=== PATIENT | female | born 1980 | race Caucasian/White ===

== ENCOUNTER 2017-12-01 12:21 | Observation (INO) | payer OTHER ==
[2017-12-01 13:13] VITALS: BMI 31.6
[2017-12-01] MEDS ORDERED: cefTRIAXone\\ROCEPHIN 2 GM VIAL IM SCH (14:00)
[2017-12-01] MEDS ORDERED: Lidocaine 1% PF 5 ML VIAL FS SCH (14:00)
[2017-12-01 14:07] LABS: Bilirubin Negative (Negative); Blood, Urine Negative (Negative); Clarity CLOUDY (Clear); Glucose, Urine (Dipstick) Negative (Negative); Leukocyte Small (Negative); Nitrite Positive (Negative); Protein, Urine (Dipstick) Trace mg/dL (Neg-Trace); Specific Gravity, Urine 1.023 (1.002-1.036); Urobilinogen 0.2 mg/dL (0.2-1.0)
[2017-12-01] MEDS ORDERED: Zolpidem Tartrate 5 MG TAB PO PRN (14:07)
[2017-12-01] MEDS ORDERED: Ondansetron HCl/PF 4 MG/2 ML Vial IVP PRN (14:07)
[2017-12-01 14:12] LABS: Bacteria/HPF 4+ HPF (None Seen); Pathc Cast-AUWi Flag 1.01 (0-2.49); RBC/HPF 0-3 HPF (0-3); Squamous Epithelial 0-3 HPF (0-3)
[2017-12-01 14:21] LABS: Hyaline Casts/LPF 0-3 HYALINE CAST LPF (0-3 Hyaline)
--- NOTE | 2017-12-01 14:50 | ULT ---
RENAL ULTRASOUND: DATE: 12/01/17. COMPARISON: None. HISTORY: Right-sided back pain. Urinary tract infection. TECHNIQUE: Multiplanar, rodriguez scale, sonographic imaging of the kidneys and urinary bladder obtained. FINDINGS: Mild prominence of the right ureter is seen proximally. No right-sided hydronephrosis, stone, or mas s lesion. The right kidney measures 10.2 x 4.2 x 5.2 cm. The left kidney measures 12.0 x 5.0 x 5.6 cm. No left renal mass, hydronephrosis, or stone. Urinary bladder is nearly fully decompressed. IMPRESSION: Mild prominence of the proximal right ureter. The study appears otherwise unremarkable. POS: SIRENA
--- NOTE | 2017-12-01 23:53 | HP ---
DATE OF ENCOUNTER: 12/01/2017 PRIMARY FLUME MAKER: Dr. Yogesh Brand. CHIEF COMPLAINT: Back pain and dysuria and fever. HISTORY OF PRESENT ILLNESS: The patient is a 37-year-old female, who was seen by Dr. Brand today in clinic and was sent to Labor and Delivery for evaluation for pyelonephritis. The patient reports th at she has been having fever for the last several nights up to 101.7. She also reports that she had a diagnosed urinary tract infection earlier in this and was treated with Bactrim, which on review was noted to have resistance. Her culture was noted to be resistant to Bactrim. She has dysu elvira and urgency. She feels like she has incomplete emptying and has had right flank pain off and on for the last several days. She reports with her fevers that she has the shakes. The patient, otherw ise, denies any other problems. She denies headache or chest pain. She denies shortness of breath o r any chest pain currently. She did report some chest pain a week ago or so that was severe, but has since dissipated and is now present. Denies nausea or vomiting. Denies diarrhea or constipation. Denies any new rashes. Denies hip problems or knee problems or muscle weakness. Denies vaginal blee ding or leakage of fluid and then reports urgency and incomplete emptying as per beginning of HPI. PAST MEDICAL HISTORY: Negative. PAST SURGICAL HISTORY: She has had a prior x1. ALLERGIES: She is allergic to PENICILLIN and to Macrobid. She has taken cephalosporins before witho ut any problems. SOCIAL HISTORY: Reports about a half pack per day of smoking. MEDICATIONS: She is on vitamins. OBSTETRICAL LABORATORY DATA: Blood type is A positive, antibody screen is negative, HIV is nonreacti ve in the first trimester. Hepatitis B surface antigen is nonreactive in the first trimester. GC an d chlamydia are negative. She is rubella immune. REVIEW OF SYSTEMS: Per HPI. PHYSICAL EXAMINATION: VITAL SIGNS: Blood pressure is 123/77, heart rate of 93, respiratory rate 18, satting 96% on room ai r, temperature 98.7. GENERAL: She appears to be in no acute distress. She is alert and oriented, cooperative, and pleasa nt to interact with. HEAD: Normocephalic, atraumatic. LUNGS: Clear to auscultation bilaterally. HEART: Regular rate and rhythm. CHEST: She has no chest wall tenderness to palpation. She has plus or minus CVA tenderness on the r ight side and she has a right-sided SI joint tenderness to palpation. ABDOMEN: Soft and nontender. EXTREMITIES: Nontender and nonedematous. GENITOURINARY EXAM: Has been deferred. heart tracing shows a fetus in the 140s with moderate long-term variability appropriate for a 2 4-week . She does have some irritability visible on the monitor, but not felt by the patien t. LABORATORY DATA: Urine cath UA was collected, noted to have trace protein, positive nitrite, small l eukocyte esterase, 7-10 white blood cells, 4+ bacteria. A culture has been ordered and is pending. Renal ultrasound was also ordered, just noting a prominence of the right ureter, otherwise within nor mal limits. ASSESSMENT AND PLAN: The patient is a 37-year-old female, , with an intrauterine at 2 4 weeks and 2 days, who will be placed in observation here in the hospital. Given her history, likel y has pyelonephritis. I have given her 2 grams of Rocephin IM. If she remains afebrile during the n ext 24 hours, the patient can be discharged to home and can be treated as an outpatient. Patient tayler es about an hour and a half from the hospital.
[2017-12-02] MEDS ORDERED: cefTRIAXone\\ROCEPHIN 1 GM VIAL IM SCH (06:45)
--- NOTE | 2017-12-02 07:09 | DIS ---
DATE OF ADMISSION: 12/01/2017 DATE OF DISCHARGE 12/02/2017 ADMITTING DIAGNOSES: 1. Complicated urinary tract infection, suspect for pyelonephritis. 2. Intrauterine at 24 weeks. DISCHARGE DIAGNOSES: 1. Complicated urinary tract infection, suspect for pyelonephritis. 2. Intrauterine at 24 weeks. PROCEDURE: None. CONSULTATIONS: None. HOSPITAL COURSE: The patient is a 37-year-old female with an intrauterine at 24 weeks who had a history of known urinary tract infection resistant to treatment, presenting with recorded fever s at home at nights, last previous 3 nights, and rigors and intermittent flank pain. After evaluatio n here at the hospital the patient was noted to have pyuria and with her living more than an hour and a half away and her history, decision was made to treat with Rocephin and keep her here overnight fo r observation with the intent that if the patient remained afebrile the patient could go home with or al treatment. Overnight, the patient has remained afebrile with normal vital signs: VITAL SIGNS: This morning blood pressure is 106/60, temperature 98.2, pulse is 78, respiratory rate of 18. GENERAL: The patient appears to be in no acute distress. She is alert and oriented, cooperative, pl easant to interact with. ABDOMEN: Soft. There is no CVA tenderness. EXTREMITIES: Nontender, nonedematous. The patient is being discharged to home on Keflex 500 mg to be taken 3 times a day for the next week. She will also be going sent home with 1 more dose of IM Rocephin 1 gram before discharge. She has instructions to follow up with her primary OB as scheduled and has been given labor precautio ns and instructions to return should the fevers return. There is a urine culture pending that her primary OB can follow up on.
[2017-12-02] MEDS ORDERED: Lidocaine 1% PF 5 ML VIAL FS SCH (08:00)
[2017-12-02 08:03] VITALS: BP 118/71; TEMP 97.6
== END 2017-12-02 09:30 | disposition home or self-care (01) ==
LOC: L&D/OP 12:21 → 3SE 16:45
PROVIDERS: ADMIT Obstetrics & Gynecology; ATTEND Obstetrics & Gynecology
DX: O23.42 Unspecified infection of urinary tract in pregnancy, second trimester (principal); O99.332 Smoking (tobacco) complicating pregnancy, second trimester; F17.200 Nicotine dependence, unspecified, uncomplicated; Z88.0 Allergy status to penicillin; Z3A.24 24 weeks gestation of pregnancy
CPT/HCPCS: 51701; 76770; 81001; 87077; 87086; 87186; 96372; 99285; G0378; J0696; J2001

== ENCOUNTER 2020-11-12 10:37 | Outpatient (CLI) | payer MEDICAID, OTHER | END 2020-11-12 10:38 | disposition home or self-care (01) | LOC: BICMAMMO 10:37 | PROVIDERS: ATTEND Family Medicine | DX: N64.4 Mastodynia (principal); N63.0 Unspecified lump in unspecified breast | CPT/HCPCS: 77066; G0279 ==

== ENCOUNTER 2022-04-15 11:09 | Outpatient (CLI) | payer OTHER ==
[2022-04-15] MEDS ORDERED: Iopamidol 370 76% 100 ML VIAL ONE (12:30)
== END 2022-04-15 11:10 | disposition home or self-care (01) ==
LOC: CT 11:09
PROVIDERS: ATTEND Registered Nurse
DX: R42 Dizziness and giddiness (principal); R26.89 Other abnormalities of gait and mobility
CPT/HCPCS: 70470; Q9967

== ENCOUNTER 2022-06-01 12:46 | Outpatient (CLI) | payer MEDICAID | END 2022-06-01 12:47 | disposition home or self-care (01) | LOC: BICMAMMO 12:46 | PROVIDERS: ATTEND Registered Nurse | DX: Z12.31 Encounter for screening mammogram for malignant neoplasm of breast (principal) | CPT/HCPCS: 77067 ==

== ENCOUNTER 2023-01-07 10:04 | Outpatient (CLI) | payer OTHER ==
[2023-01-07] MEDS ORDERED: Iopamidol-370 76% 500 ML MDV (1 ML CHARGE) ONE (11:12)
== END 2023-01-07 10:05 | disposition home or self-care (01) ==
LOC: BICCT 10:04
PROVIDERS: ATTEND Internal Medicine Gastroenterology
DX: R07.9 Chest pain, unspecified (principal); R10.13 Epigastric pain; K59.09 Other constipation; R63.4 Abnormal weight loss
CPT/HCPCS: 74177

== ENCOUNTER 2023-02-08 07:55 | Outpatient (CLI) | payer OTHER | END 2023-02-08 07:56 | disposition home or self-care (01) | LOC: BICULT 07:55 | PROVIDERS: ATTEND Internal Medicine Gastroenterology | DX: R07.9 Chest pain, unspecified (principal); R10.13 Epigastric pain; R63.4 Abnormal weight loss; K59.00 Constipation, unspecified | CPT/HCPCS: 76705 ==

== ENCOUNTER 2023-07-07 14:22 | Outpatient (CLI) | payer MEDICAID | END 2023-07-07 14:23 | disposition home or self-care (01) | LOC: BICMAMMO 14:22 | PROVIDERS: ATTEND Registered Nurse | DX: N63.11 Unspecified lump in the right breast, upper outer quadrant (principal); N64.9 Disorder of breast, unspecified | CPT/HCPCS: 76642; 77066; G0279 ==

== ENCOUNTER 2024-03-02 09:24 | Outpatient (CLI) | payer OTHER | END 2024-03-02 09:25 | disposition home or self-care (01) | LOC: ULT 09:24 | PROVIDERS: ATTEND Internal Medicine Gastroenterology | DX: K21.9 Gastro-esophageal reflux disease without esophagitis (principal); R10.13 Epigastric pain | CPT/HCPCS: 76705 ==

== ENCOUNTER 2024-05-28 09:24 | Emergency (ER) | payer SELFPAY ==
[2024-05-28 10:39] LABS: #Basophils Less than 0.03 10x3/uL (0.0-0.2); %Basophils 0.2 % (0.0-1.0); %Eosinophils 1.3 % (0.0-10.0); %Lymphocytes 35.9 % (21.0-51.0); %Monocytes 5.9 % (0.0-10.0); %Neutrophils 56.4 % (42.0-75.0); Hematocrit 38.6 % (36.0-47.0); Mean Corpuscular HGB CONC 33.7 g/dL (32.0-36.0); Mean Corpuscular Hemoglobin 30.7 pg (27.0-31.0); Mean Platelet Volume 9.5 fL (7.4-10.4); Platelet Count 324 10x3/uL (130-400); RBC Distribution Width 11.6 % (11.5-14.5); Red Blood Cell (RBC) Count 4.24 mill/uL (4.20-5.40)
[2024-05-28 10:55] LABS: Bilirubin Negative (Negative); Blood, Urine 1+ (Negative); CAUTI Indications for Culture Pelvic or flank pain; Clarity Turbid (Clear); Glucose, Urine (Dipstick) Normal (Negative); Ketone, Urine Negative (Negative); Leukocyte Negative Leu/uL (Negative); Nitrite Negative (Negative); Protein, Urine (Dipstick) 10 mg/dL (Neg-Trace); RBC/HPF 0-3 HPF (0-3); Specific Gravity, Urine 1.018 (1.002-1.036); Squamous Epithelial 21-50 HPF (0-3); Urobilinogen Normal mg/dL (Less than 2)
[2024-05-28 10:56] LABS: Bacteria/HPF 1+ HPF (None Seen)
[2024-05-28 10:58] LABS: Urine Culture Reflex No No
[2024-05-28 11:02] LABS: ALT (SGPT) 47 U/L (8-55); AST (SGOT) 40 U/L (5-34); Albumin 3.7 g/dL (3.5-5.0); Alkaline Phosphatase 59 U/L (40-110); Anion Gap 13 mmol/L (10-20); BUN (Urea Nitrogen) 12 mg/dL (7.0-18.7); Bilirubin, Total 0.3 mg/dL (0.2-1.2); Calc. Creatinine Clearance 0 mL/min (70-130); Calcium 8.8 mg/dL (7.8-10.44); Carbon Dioxide 23 mmol/L (22-29); Chloride 110 mmol/L (98-107); Estimated GFR 99; Globulin 3.5 g/dL (2.4-3.5); Glucose 91 mg/dL (70-105); Lipase 32 U/L (8-78); Potassium 3.7 mmol/L (3.5-5.1); Protein, Total 7.2 g/dL (6.0-8.3); Sodium 142 mmol/L (136-145)
[2024-05-28 11:04] LABS: BHCG - Serum Negative (NEGATIVE); Pregs Control Background? CLEAR/WHITE (CLR/WHITE); Pregs Control Bar Appear? YES (CONTROL BAR)
== END 2024-05-28 12:37 | disposition home or self-care (01) ==
LOC: ERS 09:24
DX: N13.2 Hydronephrosis with renal and ureteral calculous obstruction (principal); Z87.891 Personal history of nicotine dependence
CPT/HCPCS: 36415; 74176; 80053; 81001; 83690; 84703; 85025

== ENCOUNTER 2024-07-09 09:14 | Outpatient (CLI) | payer OTHER | END 2024-07-09 09:15 | disposition home or self-care (01) | LOC: BICULT 09:14 | PROVIDERS: ATTEND Urology | DX: N20.1 Calculus of ureter (principal) | CPT/HCPCS: 76770 ==